=== PATIENT | male | born 1955 | race African-American/Black ===

== ENCOUNTER 2019-03-30 10:38 | Inpatient (IN) | payer BC ==
[2019-03-30] MEDS ORDERED: Aspirin 81 mg CHEW TAB* 81 MG TAB.CHEW PO ONE (11:02)
--- NOTE | 2019-03-30 11:07 | ED ---
HPI Chest Pain - HPI Summary HPI Summary: Pt is a 63 y/o M presenting to the ED with a chief complaint of chest pain rapid onset about 30 minutes ago. He reports SOB since 03/28/19 on exertion. Today, 03/30/19, while he was walking up a small flight of steps, he experienced sudden onset shortness of breath with chest tightness and diaphoresis. He took 1 NTG tablet which gave him some relief. Pt has hx of HTN. He denies hx of DM, smoking, alcohol or drug use. He has had a stress test done 2 years ago and a catheterization last year, which were both clear, but he notes that the doctor saw some spasms during the catheterization. - History of Current Complaint Chief Complaint: EDChestPainROMI Time Seen by Provider: 03/30/19 10:51 Hx Obtained From: Patient Onset/Duration: Started Minutes Ago, Still Present Timing: Constant, Lasting Minutes Initial Severity: Moderate Current Severity: None Pain Intensity: 0 Pain Scale Used: 0-10 Numeric Chest Pain Location: Diffuse Chest Pain Radiates: No Character: Tightness Aggravating Factor(s): Exertion Alleviating Factor(s): NTG 123 - 1 Associated Signs and Symptoms: Positive: Chest Pain, Shortness of Breath, Diaphoresis - Allergy/Home Medications Allergies/Adverse Reactions: Allergies Allergy/AdvReac Type Severity Reaction Status Date / Time latex Allergy Swelling Verified 03/30/19 11:47 Penicillins Allergy Rash Verified 03/30/19 11:47 Sulfa (Sulfonamide Allergy Anaphylatic Verified 03/30/19 11:47 Antibiotics) Shock Home Medications: Home Medications Aspirin EC TAB* [Ecotrin EC Low Dose 81 MG*] 81 mg PO DAILY 03/30/19 [History Confirmed 03/30/19] Bisoprolol TAB* [Zebeta TAB*] 5 mg PO DAILY 03/30/19 [History Confirmed 03/30/19 ] Irbesartan (NF) [Avapro (NF)] 150 mg PO DAILY 03/30/19 [History Confirmed ] Latanoprost 0.005%* [Xalatan 0.005%*] 1 drop OPHTHALMIC QPM 03/30/19 [History Confirmed 03/30/19] Multivitamins/Minerals TAB* [Theragran/minerals TAB*] 1 tab PO DAILY 03/30/19 [ History Confirmed 03/30/19] Nitroglycerin TAB 0.4 MG* 0.4 mg SL Q5M PRN 03/30/19 [History Confirmed 03/30/19 ] amLODIPine TAB* [Norvasc 5 mg TAB*] 2.5 mg PO DAILY 03/30/19 [History Confirmed 03/30/19] PMH/Surg Hx/FS Hx/Imm Hx Previously Healthy: No Endocrine/Hematology History: Denies: Hx Diabetes, Hx Systemic Lupus Erythematosus Cardiovascular History: Reports: Hx Hypertension Denies: Hx Congestive Heart Failure History: Denies: Hx Dialysis, Hx Renal Disease Musculoskeletal History: Denies: Hx Rheumatoid Arthritis - Cancer History Cancer Type, Location and Year: diagnosed prostate ca 08/28/12 Hx Chemotherapy: No - Surgical History Surgery Procedure, Year, and Place: Prostatectomy Infectious Disease History: No Infectious Disease History: Denies: Traveled Outside the [place] in Last 30 Days - Family History Known Family History: Positive: Cardiac Disease - mother of DC at 70y/o - Social History Alcohol Use: None Hx Substance Use: No Substance Use Type: Reports: None Hx Tobacco Use: No Smoking Status (MU): Never Smoked Tobacco Review of Systems Positive: Skin Diaphoresis Positive: Chest Pain Positive: Shortness Of Breath All Other Systems Reviewed And Are Negative: Yes Physical Exam - Summary Physical Exam Summary: Appearance: Well appearing, no pain distress Skin: warm, dry, reflects adequate perfusion Head/face: normal Eyes: EOMI, GALO ENT: normal Neck: supple, non-tender Respiratory: CTA, breath sounds present Cardiovascular: RRR, pulses symmetrical Abdomen: non-tender, soft Musculoskeletal: normal, strength/ROM intact Neuro: normal, sensory motor intact, A&Ox3 Triage Information Reviewed: Yes Vital Signs On Initial Exam: Initial Vitals Temp Pulse Resp BP Pulse Ox 96.9 F 62 18 135/78 96 03/30/19 10:47 03/30/19 10:47 03/30/19 10:47 03/30/19 10:47 03/30/19 10:47 Vital Signs Reviewed: Yes Diagnostics - Vital Signs Vital Signs Temp Pulse Resp BP Pulse Ox 03/30/19 10:47 96.9 F 62 18 135/78 96 - Laboratory Result Diagrams: 03/30/19 11:31 03/30/19 11:31 Lab Statement: Any lab studies that have been ordered have been reviewed, and results considered in the medical decision making process. - Radiology CXR Radiology Interpretation Completed By: Radiologist Summary of Radiographic Findings: No active cardiopulmonary disease is noted. ED physician has reviewed this report. - EKG 1041 Cardiac Rate: Bradycardia - 59bpm EKG Rhythm: Sinus Bradycardia ST Segment: Normal Ectopy: None Summary of EKG Findings: EKG at 1041 shows sinus bradycardia at 59bpm with a prolonged IN interval, L atrial enlargement, and nonspecific T abnormalities, with no STEMI. Chest Pain Course/Dx - Course Course Of Treatment: Pt is a 63 y/o M presenting to the ED with a chief complaint of chest pain rapid onset about 30 minutes ago. He reports SOB since on exertion. Today, 03/30/19, he experienced sudden onset shortness of breath with chest tightness and diaphoresis. He took 1 NTG tablet which gave him some relief. EKG at 1041 shows sinus bradycardia at 59bpm with a prolonged IN interval, L atrial enlargement, and nonspecific T abnormalities, with no STEMI. CXR shows no active cardiopulmonary disease noted. I spoke with Dr. Palomino who will be accepting the pt to [facility] with dx including chest pain r/o DC and Prinzmetal angina. - Chest Pain Differential Diagnosis/HQI/PQRI: Acute DC, ACS, Angina, CHF, Chest Wall, Lower Respiratory Infection - Diagnoses Provider Diagnoses: Chest pain, rule out acute myocardial infarction, Prinzmetal angina Discharge - Sign-Out/Discharge Documenting (check all that apply): Patient Departure - Discharge Plan Condition: Stable Disposition: ADMITTED TO [facility] Referrals: Violetta Mcguire MD [Primary Care Provider] - - Billing Disposition and Condition Condition: STABLE Disposition: Admitted to [facility] - Attestation Statements Document Initiated by Skyeibe: Yes Documenting Scribe: Mary Ashley Provider For Whom Adina is Documenting (Include Credential): Rober Brody MD. Scribe Attestation: Mary Hernandez scribed for Rober Brody MD. on 03/30/19 at 1314. Scribe Documentation Reviewed: Yes Provider Attestation: The documentation as recorded by the skyeibeMary accurately reflects the service I personally performed and the decisions made by Rober meza MD. Status of Scribe Document: Viewed Consult Consult: 1229 - I spoke with Dr. Palomino about the pt's condition who will be accepting the pt to [facility] with dx including chest pain rule out DC and Prinzmetal angina.
[2019-03-30 11:40] LABS: ABS Basophils 0.1 10^3/ul (0-0.2); ABS Eosinophils 0.2 10^3/ul (0-0.6); ABS Lymphocytes 1.7 10^3/ul (1.0-4.8); ABS Monocytes 0.6 10^3/ul (0-0.8); ABS Neutrophils 5.4 10^3/ul (1.5-7.7); Eosinophil % 2.3 %; Hematocrit 43 % (42-52); Hemoglobin 14.3 g/dL (14.0-18.0); Lymphocyte % 20.9 %; Mean Corpuscular HGB Conc 34 g/dL (31-36); Mean Corpuscular Hemoglobin 27 pg (27-31); Mean Corpuscular Volume 81 fL (80-94); Mean Platelet Volume 8.3 fL (7.4-10.4); Nucleated Red Blood Cells % 0.2; Platelet Count 269 10^3/uL (150-450); Red Blood Count 5.24 10^6 /uL (4.18-5.48); Red Cell Distribution Width 14 % (10.5-15); White Blood Count 7.9 10^3/uL (3.5-10.8)
[2019-03-30 11:54] LABS: Activated Partial Thrombo Time 31.4 seconds (26.0-36.3); INR 0.99 (0.82-1.09)
[2019-03-30 11:58] LABS: Albumin 4.1 g/dL (3.2-5.2); Albumin/Globulin Ratio 1.5 (1-3); BUN/Creatinine Ratio 11.7 (8-20); Calcium 9.2 mg/dL (8.6-10.3); EGFR African American 97.5 (>60); EGFR Non-African American 80.5 (>60); Globulin 2.8 g/dL (2-4); Total Bilirubin 0.4 mg/dL (0.2-1.0); Total Protein 6.9 g/dL (6.4-8.9)
[2019-03-30 11:59] LABS: Troponin I 0.01 ng/mL (<0.04)
[2019-03-30] MEDS ORDERED: Nitroglycerin TAB 0.4 MG* 0.4 MG TAB SL PRN (15:17)
[2019-03-30 15:22] LABS: Magnesium 2.1 mg/dL (1.9-2.7)
[2019-03-30 15:41] LABS: TSH (Thyroid Stimulating Horm) 0.69 mcIU/mL (0.34-5.60)
[2019-03-30] MEDS: Enoxaparin(*) 40 MG/0.4 ML SYR SUBCUT SCH (16:37)
[2019-03-30] MEDS ORDERED: Latanoprost 0.005%* 2.5 ml BTL BOTH EYES SCH (18:00)
--- NOTE | 2019-03-30 19:56 | HP ---
History of Present Illness - History of Present Illness Reason for Visit: chest pain History of Present Illness: Patient is 63 year old man with history of hypertension, who has developed dyspnea with exertion and chest tightness over the past 2 days. He first noted dyspnea and chest tightness when climbing a hill 2 days ago. Yesterday he again experienced this walking on the level in a store. Today this occurred again at work, and was accompanied by diaphoresis, lightheadedness. He rated chest heaviness today at 5/10. He went home from work and took nitroglycerin and the pressure resolved. Patient had cardiac cath in May 2018, at [facility]. This showed no obstructive CAD, but did show an area of vasospasm that resolved with intraluminal nitroglycerin. 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 Alcohol: Occassional - social Drugs: None Lives: Friends - , 2 children Review of Systems - Measurements Intake and Output: Intake and Output Last 24 Hours 03/28/19 03/29/19 03/30/19 03/31/19 06:59 06:59 06:59 06:59 Intake Total 360 Balance 360 Weight 126.099 kg Intake: Oral 360 - Review of Systems Constitutional Symptoms: Negative: Weight Gain Dermatology: Positive: Normal HEENT: Positive: Normal Eyes: Positive: Normal Thyroid: Positive: Normal Pulmonary: Positive: Normal Cardiology: Positive: Chest Pain, Shortness of Breath Negative: Palpitations, Orthopnoea Gastroenterology: Positive: Normal Genital - Urinary: Positive: Normal Musculoskeletal: Negative: Joint Pain Endocrinology: Positive: Normal Hematologic/Lymphatic: Negative: Anemia Neurology: Positive: Normal Psychiatry: Positive: Normal Objective Active Medications: Ambulatory Orders LevoCETirizine TAB (NF) [Xyzal TAB (NF)] 5 mg PO DAILY 09/03/14 Aspirin EC TAB* [Ecotrin EC Low Dose 81 MG*] 81 mg PO DAILY 03/30/19 Bisoprolol TAB* [Zebeta TAB*] 5 mg PO DAILY 03/30/19 Irbesartan (NF) [Avapro (NF)] 150 mg PO DAILY 03/30/19 Latanoprost 0.005%* [Xalatan 0.005%*] 1 drop OPHTHALMIC QPM 03/30/19 Multivitamins/Minerals TAB* [Theragran/minerals TAB*] 1 tab PO DAILY 03/30/19 Nitroglycerin TAB 0.4 MG* 0.4 mg SL Q5M PRN 03/30/19 amLODIPine TAB* [Norvasc 5 mg TAB*] 2.5 mg PO DAILY 03/30/19 Vital Signs - 8 hr 03/30/19 03/30/19 03/30/19 12:00 12:05 12:35 Temperature Pulse Rate 52 50 50 Respiratory 17 21 18 Rate Blood Pressure 130/67 115/66 (mmHg) O2 Sat by Pulse 94 94 97 Oximetry 03/30/19 03/30/19 19:14 19:31 Temperature 36.3 C Pulse Rate 55 Respiratory 24 18 Rate Blood Pressure 130/70 (mmHg) O2 Sat by Pulse 99 Oximetry Oxygen Devices in Use Now: None Appearance: alert, no distress Eyes: No Scleral Icterus Ears/Nose/Mouth/Throat: NL Teeth, Lips, Gums, Clear Oropharnyx, Mucous Membranes Moist Neck: NL Appearance and Movements; NL JVP, Trachea Midline Respiratory: Symmetrical Chest Expansion and Respiratory Effort, Clear to Auscultation Cardiovascular: NL Sounds; No Murmurs; No JVD, RRR Abdominal: NL Sounds; No Tenderness; No Distention, No Hepatosplenomegaly Lymphatic: No Cervical Adenopathy, No Axillary Adenopathy Extremities: No Edema Skin: No Rash or Ulcers Neurological: Alert and Oriented x 3, NL Muscle Strength and Tone Lines/Tubes/Other Access: Clean, Dry and Intact Peripheral IV Nutrition: Taking PO's Result Diagrams: 03/30/19 11:31 03/30/19 11:31 Additional Lab and Data: Laboratory Tests 03/30/19 03/30/19 03/30/19 11:31 11:31 11:31 INR (Anticoag Therapy) 0.99 APTT 31.4 Glucose 110 H Calcium 9.2 Troponin I 0.01 B-Natriuretic Peptide 66 TSH 0.69 03/30/19 03/30/19 13:41 18:25 INR (Anticoag Therapy) APTT Glucose Calcium Troponin I 0.03 0.03 B-Natriuretic Peptide TSH Diagnostic Imaging: CXR: negative EKG Data: Normal sinus rhythm, normal axis, T-wave inversions III, aVF, flattened T-waves V5-V6, no old EKG to compare Assess/Plan/Problems-Billing Assessment: 63 year old man with exertional chest discomfort, dyspnea, possible angina - Patient Problems (1) Angina pectoris Current Visit: Yes Status: Acute Priority: High Code(s): I20.9 - ANGINA PECTORIS, UNSPECIFIED SNOMED Code(s): 766810515 Comment: -Patient admitted to telemetry for clear story of exertional angina. -Confounding variable is negative cath less than 1 year ago. -Already on norvasc as anti-anginal -Will plan exercise stress test tomorrow, and consult with cardiology if positive -Holding CCB and BB for testing (2) Congestive heart failure (CHF) Current Visit: Yes Status: Acute Priority: Medium Code(s): I50.9 - HEART FAILURE, UNSPECIFIED SNOMED Code(s): 80218378 Comment: -Differential also includes CHF. Will have echocardiogram in AM. -Discussed with patient (3) DVT prophylaxis Current Visit: Yes Status: Acute Priority: Low Code(s): Z29.9 - ENCOUNTER FOR PROPHYLACTIC MEASURES, UNSPECIFIED SNOMED Code(s): 685664065 Comment: Moderate risk, starting SC Lovenox Status and Disposition: observation
[2019-03-30] MEDS: Latanoprost 0.005%* 2.5 ml BTL BOTH EYES SCH (21:37)
[2019-03-31 07:23] LABS: HDL Cholesterol 33.5 mg/dL
[2019-03-31] MEDS: Losartan TAB* 25 MG PO SCH (08:58)
[2019-03-31] MEDS: Aspirin EC TAB* 81 MG TAB.EC PO SCH (08:59)
[2019-03-31] MEDS: amLODIPine TAB* 5 MG PO SCH (08:59)
[2019-03-31] MEDS ORDERED: Aspirin EC TAB* 81 MG TAB.EC PO SCH (09:00)
[2019-03-31] MEDS ORDERED: Regadenoson* 0.4 MG/5 ML SYRINGE ONE (11:23)
[2019-03-31] MEDS ORDERED: Aminophylline IV* 25 MG/ML 10 ML VIAL ONE (11:25)
[2019-03-31] MEDS: Enoxaparin(*) 40 MG/0.4 ML SYR SUBCUT SCH (15:43)
--- NOTE | 2019-03-31 16:50 | ECHO ---
*[facility]* [place] [address] Fax #: [phone] Transthoracic Echocardiogram Patient: Augustine, Height: 68 in / Nba 172.7 cm : 1955 Weight: 274.4 lb / Study Date: 03/31/2019 124.7 kg Age: 63 BP: 129 / 66 Gender: M BMI/BSA: 41.8 kg/m^2 HR: 57 bpm / 2.34 m^2 *Suede Cleaner: * Kiara Pena [facility] *Referring Physician: * Ghulam Palomino *Reading Physician: * Nandini Hope MD Indications: Congestive Heart Failure. History: Risk factors: Hypertension. Conclusions Summary: 1. Left ventricle: There is mild concentric hypertrophy. Systolic function is normal. The estimated ejection fraction is 55-60%. Left ventricular diastolic function parameters are indeterminate. 2. Right ventricle: The cavity size is mildly dilated. Systolic function is normal. 3. All valves show good function. 4. No prior echocardiogram to compare. Study data: Transthoracic echocardiogram. Procedure: Transthoracic echocardiography was performed. Image quality was fair. Complete 2D, spectral Doppler, and color flow Doppler. Location: Echo laboratory. Patient status: Inpatient. Patient room number: 448-2. Rhythm: Bradycardia. Findings Left ventricle: The cavity size is normal. There is mild concentric hypertrophy. Systolic function is normal. The estimated ejection fraction is 55-60%. Wall motion is normal; there are no regional wall motion abnormalities. Left ventricular diastolic function parameters are indeterminate. Right ventricle: The cavity size is mildly dilated. The moderator band is in a normal position. Systolic function is normal. Left atrium: The atrium is mildly dilated. Right atrium: The atrium is mildly dilated. Mitral valve: The leaflets are mildly thickened. There is no evidence of stenosis. There is trace regurgitation. Aortic valve: The valve is trileaflet. The leaflets are normal thickness. There is no evidence of stenosis. There is no significant regurgitation. Tricuspid valve: The leaflets are normal thickness. There is no evidence of stenosis. There is physiologic regurgitation. Pulmonic valve: The leaflets are normal thickness. There is no evidence of stenosis. There is trace regurgitation. Aorta: Aortic root: The aortic root is appears normal. Ascending aorta: The ascending aorta is upper normal in size. Aortic arch: The aortic arch is appears normal. Pericardium: A prominent pericardial fat pad is present. There is no pericardial effusion. Pulmonary arteries: Not well visualized. Systemic veins: Inferior vena cava: The vessel is normal in size. The respirophasic diameter changes are in the normal range (>= 50%). Measurements Left ventricle Value Ref Right atrium continued Value Ref PORTIA, LAX 5.1 cm 4.2 - 5.8 SI dim/bsa, ES, 2.4 cm/m^2 1.8 - ESD, LAX 3.7 cm 2.5 - 4.0 A4C 3.0 FS, LAX 28 % Estimated RAP 3 mm Hg -------- PW, ED, LAX (H) 1.1 cm 0.6 - 1.0 FS % Aortic valve Value Ref PW, ED (H) 1.1 cm 0.6 - 1.0 Bharti diam, ED 2.0 cm -------- E', lat bharti, TDI (L) 9.5 cm/sec >=10.0 Peak v, S 1.2 m/sec - ------- E/e', lat bharti, 10 VTI, S 19.7 cm ---- ---- TDI Mean grad, S 2.0 mm Hg -------- E', med bharti, TDI (L) 6.4 cm/sec >=7.0 Peak grad, S 6.0 mm Hg - ------- E/e', med bharti, 14 LVOT/AV, VTI ratio 1.17 ---- ---- TDI E', avg, TDI 8.0 cm/sec Mitral valve Value Ref E/e', avg, TDI 11 <=14 Peak E 0.91 m/sec - ------- Peak A 0.72 m/sec -------- LVOT Value Ref Decel time 215 ms -------- Peak bob, S 1 m/sec Peak grad, D 3.3 mm Hg -------- VTI, S 23.0 cm Peak E/A ratio 1.3 -------- Mean grad, S 2 mm Hg Pulmonic valve Value Ref Ventricular septum Value Ref Peak v, S 0.87 m/sec -------- IVS, ED 1.0 cm 0.6 - 1.0 Peak grad, S 3.0 mm Hg -------- Right ventricle Value Ref Aortic root Value Ref PORTIA, LAX 4.0 cm Root diam 3.1 cm <4.4 PORTIA minor ax, (H) 5.0 cm 1.9 - 3.5 A4C mid Ascending aorta Value Ref AAo AP diam, S 3.6 cm -------- Left atrium Value Ref AP dim, ES 4.00 cm 3.00 - Aortic arch Value Ref 4.00 Arch diam 2.6 cm -------- ML dim, A4C 4.9 cm SI dim, A4C 5.4 cm Decending aorta Value Ref Vol/bsa, ES, 1-p 26 ml/m^2 12 - 37 Renae peak bob 1.09 m/sec -------- A4C Vol/bsa, ES, A/L 31 ml/m^2 16 - 34 Inferior vena cava Value Ref Diam 1.8 cm -------- Right atrium Value Ref SI dim, ES (H) 5.6 cm 3.4 - 5.3 ML dim, ES, A4C (H) 4.8 cm 2.6 - 4.4 SI dim, ES, A4C (H) 5.6 cm 3.4 - 5.3 Legend: (L) and (H) nini values outside specified reference range. Prepared and electronically signed by Nandini Hope MD 03/31/2019 16:50
[2019-03-31] MEDS: Latanoprost 0.005%* 2.5 ml BTL BOTH EYES SCH (22:24)
--- NOTE | 2019-03-31 22:47 | CONS ---
CC: Dr. Violetta Mcguire; Dr. Kelly CONSULTATION REPORT: DATE OF CONSULT: 03/31/19 REASON FOR CONSULT: Chest pain and abnormal stress test. CHIEF COMPLAINT: Exertional chest pain, shortness of breath, and diaphoresis. HISTORY OF PRESENT ILLNESS: Mr. Bradshaw is a 63-year-old gentleman who had a heart catheterization last year at [facility] in [place] and was found to have mild disease in the LAD with spasm and was placed on medical management. He did well for the last year. He says the new medication that was added was bisoprolol. He has done well over the last 10 months overall. He has been active. He rides his bike, plays squash. He has an active job at [employer] and he did well until 6 days ago. Six days ago, he played squash; he thinks he might have done some painting or something to the nelson because something white came off on his squash ball and he developed discomfort in the chest while playing squash. This was a . He then did well until graduation at [employer] over the weekend and he was walking up a hill and had chest discomfort and some diaphoresis, but then did fine going downhill. He was then at [facility], walking into [facility] on the flat, and developed chest discomfort and heaviness associated with diaphoresis and shortness of breath and some nausea. Today, on the stress test, he was not able to walk far and had mild ST depression with walking and the stress test, required chemical stress in recovery and the test revealed a reversible area of ischemia in the distribution of the anterior wall and apex. PAST MEDICAL HISTORY: The patient has a past medical history of: 1. Coronary artery disease. 2. Hypertension. 3. Dyslipidemia. 4. Intolerant to statins. 5. Glaucoma. 6. Prostate cancer, status post prostatectomy (2012). 7. Obesity. 8. Positive for obstructive sleep apnea, wears CPAP. MEDICATIONS: Current outpatient medications include: 1. Bisoprolol 5 mg a day. 2. Irbesartan 150 mg a day. 3. Amlodipine 2.5 mg a day. 4. MultiVites. 5. Aspirin 81 mg a day. 6. Levocetirizine (Xyzal) 5 mg a day. 7. Nitroglycerin p.r.n. 8. Xalatan ophthalmic drops. Inpatient medications include: 1. Amlodipine 2.5 mg a day. 2. Lovenox. 3. Aspirin 81 mg a day. 4. Losartan 50 mg a day. 5. Nitroglycerin p.r.n. ALLERGIES: LATEX, PENICILLIN, SULFA, and intolerance to STATINS with myalgias. FAMILY HISTORY: Significant in that his mother had coronary artery disease, history of stents, and congestive heart failure. Father's family history is not known. 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 Distant smoking history. Rare to occasional alcohol use. No history of recreational drug use. with supportive , who is present during the exam. REVIEW OF SYSTEMS: See history of present illness for recent exertional chest pressure, heaviness over the last 6 days. Negative for orthopnea. Negative for any new medication. Negative for fevers, chills, sweats. No change in bowel or bladder habits. He states he has been using a CPAP. He has had a prostatectomy, so no trouble urinating. All other 11-point review of systems were negative. PHYSICAL EXAM: The patient is 5 feet 8 inches, weighs 278 pounds with a BMI of 42. Vital Signs: On admission 03/30/19, blood pressure 135/78, pulse was 62. Current vital signs, blood pressure 127/77, pulse is 55, respiratory rate is 28 , oxygen saturation 99% on room air, and he is afebrile. General Appearance: Older middle- aged gentleman, but very overweight, lying at 20 degrees, comfortable, at his side. Psychologically, pleasant and cooperative. Neurologically, awake, alert, and oriented to person; place; and time. Cranial nerves II through XII intact. Grossly normal sensory and motor function in the upper and lower extremities and bed exam. Skin: Warm, dry. No appreciable cyanosis with lips or nail beds. HEENT: Mucous membranes moist. Neck thick from obesity, but no appreciable thyromegaly. Good carotid pulses. No audible bruits. Breath sounds are clear with good effort. No wheezes, rales, or rhonchi. Coronary: S1, S2, regular without murmurs or rubs. Abdomen: Overweight, active bowel sounds, soft. Nontender. No appreciable hepatomegaly. Lower extremities are free of edema and warmth. Wrists are symmetrical with pulses 2+. DIAGNOSTIC STUDIES/LAB DATA: Labs: White count 7.9, hematocrit 43, platelets 269. INR 0.99, PTT 31. Sodium 139, potassium 4.0, chloride 108, bicarb 25, BUN 11, creatinine 0.94, glucose 110. AST 24, ALT 31. Troponin #1 of 0.01. Troponin #2 of 0.03. Troponin #3 of 0.03. Total cholesterol 179, triglycerides 128, LDL cholesterol 120, HDL cholesterol 35. TSH 0.69. EKG on admission at 10:41 showed normal sinus rhythm at 60 beats per minute, QRS axis of 0 with normal AV and IV conduction times. Some flattened T waves in the lateral leads. Nuclear stress test was reviewed personally and shows reversible ischemia in the distribution of the LAD, the anterior wall and apex. Ejection fraction was 60% at stress. EKG portion of the stress test showed some mild ST depression and showed he was able to walk into stage II with a standard Willie protocol, achieved a workload of 4.6 METs and therefore, followed with a Lexiscan ( chemical stress test). The precordial leads did show inverted T waves V3 through V6 which replaced flattened T waves. Cardiac catheterization performed at [facility] in May 2018 showed : Left main: Large, free of disease. LAD: Large caliber with mild stenosis proximally, improved with nitroglycerin, consistent with spasm. Circumflex: Free of disease. Right coronary artery: Mild luminal irregularities. Left ventricular end diastolic pressure was 12. Echocardiogram done today showed an ejection fraction of 55% to 60%, mild right ventricular dilatation, normal valve function. IMPRESSION AND PLAN: In summary, Mr. Arango is a 63-year-old gentleman with a good story for crescendo angina, abnormal stress test by EKG and nuclear imaging in that it illustrated his poor functional ability, which is new ( recently playing squash, biking 25 miles). I am wondering if the LAD lesion progressed from mild to moderate and he perhaps cracked his moderate plaque and there is now clot on top of this which could present like this. I recommended repeat catheterization even in the setting of the unremarkable catheterization 10 months ago. Risks and benefits of the procedure were discussed with the patient in the presence of his . They asked many good questions and he asked about if it would be okay to proceed with medical management and I explained that based on his stress test performance, it would be hard to get him back to work feeling well or back to exercising feeling well and that our data would support proceeding with another heart catheterization to help us determine what the best management of his symptoms are. He is amenable to proceeding, but very much wants this study to be done through his wrist. Additional recommendations will be made pending the results of his stress test. I did discuss with the patient and his the fact that, although his cholesterol panel is overall good, if it did show progression in his atherosclerotic disease, we would need to work on medications other than statins to try to optimize his cholesterol, especially in light of his family history. I also discussed his weight as another risk factor. [id number]/[facility] #: [id number] ISHMAEL
[2019-04-01] MEDS ORDERED: NS 0.9% 1000 ML** 400 ML IV SCH (06:00)
[2019-04-01] MEDS: Aspirin EC TAB* 81 MG TAB.EC PO SCH (08:02)
[2019-04-01] MEDS: Losartan TAB* 25 MG PO SCH (08:02)
[2019-04-01] MEDS: amLODIPine TAB* 5 MG PO SCH (08:03)
--- NOTE | 2019-04-01 08:40 | PN ---
Cardiology Progress Note Date of Service: 04/01/19 - abnormal stress test, c/o chest pain. Met with patient and his who was at beside to review indication for LHC including risk versus benefits of procedure. He is aware that he had an abnormal stress test 03/31/2019 that demonstrated reversible ischemia in the apex , apical to mid anterior wall. He has known mild to moderate LAD lesion based on last LHC. He denies h/o CVA, bleeding complications in the past( GI bleed, need to be transfused). I reviewed the possibility of needing PTCA, cardiac stent or possible CABG and the role of DAPT. He is aware that if he were to need CABG this would have to be done at a tertiary cardiac center. [facility] is okay with [facility] if that needs to be done. I discussed the risk of the procedure that include but are not limited to bleeding, infection, risk of vessle damage, CVA, ID, , contrast induced nephropathy. He is agreeable to proceeding with cardiac catheterization. Consent to be obtained by Dr. Sam [facility] [employer].
[2019-04-01] MEDS ORDERED: fentaNYL* 50 MCG/ML 2 ML VIAL (100 MCG VIAL) ONE (08:49)
[2019-04-01] MEDS ORDERED: Midazolam* 1 MG/ML 5 ML VIAL (5 MG) ONE (08:49)
[2019-04-01] MEDS ORDERED: Iohexol 350 (CONTRAST) 200 ML MDV IV ONE (08:50)
[2019-04-01] MEDS ORDERED: nitroGLYCERIN DRIP* 25,000 MCG/250 ML BTL ONE ×2 (08:50→09:53)
[2019-04-01] MEDS ORDERED: Lidocaine 1% INJ* 10 MG/ML 30 ML SDV ONE (08:50)
[2019-04-01] MEDS ORDERED: Heparin(*) 1000 UNIT/ML 10 ML VIAL CATH LAB IV ONE ×2 (08:50→09:40)
[2019-04-01] MEDS ORDERED: VERAPAMIL 2.5 MG/ML 2 ML VIAL ** 5 mg/2 ml ONE (08:50)
[2019-04-01] MEDS ORDERED: Heparin 2 UNITS/ML IVPREMIX* 2,000 UNIT/1,000 ML BAG IV ONE (08:51)
[2019-04-01] MEDS ORDERED: Ticagrelor* 90 MG TAB PO ONE (09:35)
[2019-04-01] MEDS ORDERED: NS 0.9% 1000 ML** 1,000 ML IV SCH (10:15)
--- NOTE | 2019-04-01 14:59 | CATH ---
CC: Dr. Violetta Mcguire; Dr. Hope STENT REPORT: DATE OF PROCEDURE: 04/01/19 PRIMARY CARE PHYSICIAN: Dr. Violetta Mcguire. BISQUE GRADER: Dr. Hope. PROCEDURES: 1. Right radial artery access. 2. Bilateral selective coronary cineangiography. 3. Left heart catheterization. 4. Stent placement to LAD 4.0 x 16 mm Synergy drug-eluting stent. HISTORY: A 63-year-old male with cath in [place] 1 year ago, which demonstrated proximal LAD stenosis, which was mild, responded to nitroglycerin per report. The area of the current lesion at that time on an image that his has on her phone had only a 10% to 20% stenosis. He now presents with unstable angina with progressive symptoms, progressive limitations, had a modera te risk stress imaging study yesterday with limited exercise capacity, reproduction of angina, and an anteroapical reversible defect. PROCEDURE ACCESS: Right radial artery sheath, 6F slender. MEDICATIONS: 1. Subcu lidocaine. 2. IV Versed. 3. IV fentanyl. 4. Heparin 3000 units. 5. Verapamil 3 mg. 6. Nitroglycerin 300 mcg IA. 7. Brilinta 180 mg p.o. loading dose. 8. Heparin 7000 units IV. DIAGNOSTIC CATHETER: 5F TIG4, 5FR4, which was also used to measure LV pressure and pullback. HEMODYNAMICS: AO 108/69. LV 103/21, no aortic valve gradient on pullback. ANGIOGRAPHY: Left main: The left main is short, normal. LAD: The LAD is very large, extends past the apex. There is a 90% stenosis just proximal to the sec ond relatively small diagonal, distal LAD has minor luminal irregularity, supplies the inferoapical a pex. The area of concern in [place] again has minimal stenosis. Circumflex: The circumflex is large, not dominant with a large ramus branch or a high OM. He has mo derate bifurcated second marginal, circumflex and with several small posterolaterals. The circumflex has no significant stenosis. RCA: The RCA is large, dominant, with minor luminal irregularities, supplies a large PDA and the sma ll posterolateral, has no significant stenosis. After drug-eluting stent placement and high pressure postdilatation, the small second diagonal which is jailed is occluded, there is no residual stenosis, flow is THIAGO-3. He had very transient chest di scomfort that resolved with IV nitro. CONCLUSION: 1. Singe-vessel disease LAD with progression from prior study per report. The area of previously navarro spected proximal spasm is unchanged. 2. Excellent angiographic result with drug-eluting stent placement. 3. Normal left-sided hemodynamics aside from elevated LVEDP. 4. Successful right radial artery access. [id number]/[facility] #: [id number]
[2019-04-01] MEDS: Enoxaparin(*) 40 MG/0.4 ML SYR SUBCUT SCH (16:26)
[2019-04-01] MEDS: Latanoprost 0.005%* 2.5 ml BTL BOTH EYES SCH (21:38)
[2019-04-01] MEDS: Ticagrelor* 90 MG TAB PO SCH (21:39)
[2019-04-02 05:57] LABS: Blood Urea Nitrogen 12 mg/dL (6-24); CO2 Carbon Dioxide 23 mmol/L (22-32); Calcium 9.1 mg/dL (8.6-10.3); Chloride 107 mmol/L (101-111); EGFR African American 90.7 (>60); Glucose 104 mg/dL (70-100); Sodium 138 mmol/L (135-145)
[2019-04-02 06:03] LABS: Anion Gap 8 mmol/L (2-11)
[2019-04-02] MEDS: amLODIPine TAB* 5 MG PO SCH (08:04)
[2019-04-02] MEDS: Aspirin EC TAB* 81 MG TAB.EC PO SCH (08:05)
[2019-04-02] MEDS: Ticagrelor* 90 MG TAB PO SCH (08:05)
[2019-04-02] MEDS: Losartan TAB* 25 MG PO SCH (08:05)
--- NOTE | 2019-04-02 08:45 | PN ---
<Polina Aguilar - Last Filed: 04/02/19 08:39> Subjective Date of Service: 04/02/19 - abnormal stress test s/p HONG/Proximal LAD Interval History: No events last night, patient offers no complaints. Denies chest pain, sob, rosa , palpitations, dizziness. He has been up and ambulating with no problems. He is anxious to go home. He is asking about whether or not he will go home on his previous bblocker given BP has been elevated. Medications Active Medications: Amlodipine Besylate (Norvasc Tab*) 2.5 mg PO DAILY [facility] Last Admin: 04/02/19 08:04 Dose: 2.5 mg Aspirin (Aspirin Ec Tab*) 81 mg PO DAILY [facility] Last Admin: 04/02/19 08:05 Dose: 81 mg Bisoprolol Fumarate (Zebeta Tab*) 5 mg PO DAILY [facility] Enoxaparin Sodium (Lovenox(*)) 40 mg SUBCUT Q24H [facility] Last Admin: 04/01/19 16:26 Dose: 40 mg Latanoprost (Xalatan 0.005%*) 1 drop BOTH EYES BEDTIME [facility] Last Admin: 04/01/19 21:38 Dose: 1 drop Losartan Potassium (Cozaar Tab*) 50 mg PO DAILY [facility] Last Admin: 04/02/19 08:05 Dose: 50 mg Nitroglycerin (Nitroglycerin Tab 0.4 Mg*) 0.4 mg SL Q5M PRN PRN Reason: PAIN - CHEST Pitavastatin (Livalo (Nf)) 1 mg PO 1700 [facility] Ticagrelor (Brilinta*) 90 mg PO BID [facility] Last Admin: 04/02/19 08:05 Dose: 90 mg Objective Vital Signs: Temp Pulse Resp BP Pulse Ox 98.4 F 58 17 136/76 95 04/02/19 07:29 04/02/19 06:00 04/02/19 06:00 04/02/19 06:00 04/02/19 06:00 Oxygen Devices in Use Now: None Appearance: lying in bed, well nourished. NAD, A+O x3 Ears/Nose/Mouth/Throat: NL Teeth, Lips, Gums, Clear Oropharnyx, Mucous Membranes Moist Neck: NL Appearance and Movements; NL JVP Respiratory: Symmetrical Chest Expansion and Respiratory Effort, Clear to Auscultation Cardiovascular: NL Sounds; No Murmurs; No JVD, No Edema, - - right radial access site is intact, no swelling. no hematoma. Extremities: No Edema Neurological: Alert and Oriented x 3, NL Sensation Lines/Tubes/Other Access: Clean, Dry and Intact Peripheral IV Laboratory Results: 03/30/19 11:31 04/02/19 04:36 INR (Anticoag Therapy) 0.99 (0.82-1.09) 03/30/19 11:31 APTT 31.4 seconds (26.0-36.3) 03/30/19 11:31 Total Bilirubin 0.40 mg/dL (0.2-1.0) 03/30/19 11:31 AST 24 U/L (13-39) 03/30/19 11:31 ALT 31 U/L (7-52) 03/30/19 11:31 Alkaline Phosphatase 85 U/L (34-104) 03/30/19 11:31 B-Natriuretic Peptide 66 pg/mL (<=100) 03/30/19 11:31 Total Protein 6.9 g/dL (6.4-8.9) 03/30/19 11:31 Albumin 4.1 g/dL (3.2-5.2) 03/30/19 11:31 Globulin 2.8 g/dL (2-4) 03/30/19 11:31 Albumin/Globulin Ratio 1.5 (1-3) 03/30/19 11:31 Triglycerides 128 mg/dL 03/31/19 06:34 Cholesterol 179 mg/dL 03/31/19 06:34 LDL Cholesterol 120 mg/dL 03/31/19 06:34 HDL Cholesterol 33.5 mg/dL 03/31/19 06:34 TSH 0.69 mcIU/mL (0.34-5.60) 03/30/19 11:31 03/30/19 03/30/19 03/30/19 11:31 13:41 18:25 Troponin I 0.01 0.03 0.03 Diagnostic Imaging: *[facility]* [place] [address] Fax #: [phone] Transthoracic Echocardiogram Patient: uAgustine, Height: 68 in / Nba 172.7 cm : 1955 Weight: 274.4 lb / Study Date: 03/31/2019 124.7 kg Age: 63 BP: 129 / 64 Gender: M BMI/BSA: 41.8 kg/m^2 HR: 57 bpm / 2.34 m^2 *Track Fitter: * Kiara Pena RDCS *Referring Physician: * Ghulam Palomino *Reading Physician: Nandini Vraner MD Indications: Congestive Heart Failure. History: Risk factors: Hypertension. Conclusions Summary: 1. Left ventricle: There is mild concentric hypertrophy. Systolic function is normal. The estimated ejection fraction is 55-60%. Left ventricular diastolic function parameters are indeterminate. 2. Right ventricle: The cavity size is mildly dilated. Systolic function is normal. 3. All valves show good function. 4. No prior echocardiogram to compare. Study data: Transthoracic echocardiogram. Procedure: Transthoracic echocardiography was performed. Image quality was fair. Complete 2D, spectral Doppler, and color flow Doppler. Location: Echo laboratory. Patient status: Inpatient. Patient This report is only to be considered final once signed by the Provider(s) as displayed in the "<Electronically Signed by >" field (s). Absence of a signature indicates the report is in a draft status and still needs to be finalized. In the event this document was created by someone other than the signing Provider, the individual initiating the document will be listed in the "Entered by:" or "Dictated by:" guerra. EKG Data: 04/02/2019; Sinus rhythm rate 62 with diffuse TW flattening. Telemetry; reviewed. Sinus rhythm rate 60's rare PVC no VT Assessment/Plan #1 Abnormal stress test with c/o chest pain. He is s/p HONG 4.0x16mm Synergy to Proximal LAD 03/31/2019. Patient is doing well with no recurrent c/o chest pain. He offers no complaints at this time. He is to go home on ASA 81/day, Brilinta 90mg PO BID ( free 30 day supply has been sent to our outpatient pharmacy). Will restart Livalo 1mg/day which he previously tolerated in addition to Co Q 10 100mg/day. Patient was previously on Bisproprolol 5mg/day with known proximal LAD spasm. will go back home on Bisproprolol 5mg/day. He is to f/u with Dr. Paul Keating on 04/06/2019 . I personally spoke with Dr. Schneider who states his office will contact the patient with date and time of f/u appointment and is aware that he will need repeat FLP/LFT in 6-8 weeks given re initiation of Livalo. Please note patient has a h/o of multiple statin intolerances. #2 h/o HTN; BP elevated will resume Bisproprolol 5mg/day. #3 h/o HLD; Goal LDL < 70 given h/o CAD. Will go home on Livalo 1mg/day. Will need FLP/LFT in 6-8 weeks. Primary immigration manager is aware. #4 Disposition pending course. Patient full code. Will sign off. Please do not hesitate to contact our practice with any questions or concerns. D/w Dr. Keating. Attending: Paul Keating <Paul Keating - Last Filed: 04/02/19 09:24> Medications Active Medications: Amlodipine Besylate (Norvasc Tab*) 2.5 mg PO DAILY [facility] Last Admin: 04/02/19 08:04 Dose: 2.5 mg Aspirin (Aspirin Ec Tab*) 81 mg PO DAILY [facility] Last Admin: 04/02/19 08:05 Dose: 81 mg Bisoprolol Fumarate (Zebeta Tab*) 5 mg PO DAILY [facility] Enoxaparin Sodium (Lovenox(*)) 40 mg SUBCUT Q24H [facility] Last Admin: 04/01/19 16:26 Dose: 40 mg Latanoprost (Xalatan 0.005%*) 1 drop BOTH EYES BEDTIME [facility] Last Admin: 04/01/19 21:38 Dose: 1 drop Losartan Potassium (Cozaar Tab*) 50 mg PO DAILY [facility] Last Admin: 04/02/19 08:05 Dose: 50 mg Nitroglycerin (Nitroglycerin Tab 0.4 Mg*) 0.4 mg SL Q5M PRN PRN Reason: PAIN - CHEST Pitavastatin (Livalo (Nf)) 1 mg PO 1700 [facility] Ticagrelor (Brilinta*) 90 mg PO BID [facility] Last Admin: 04/02/19 08:05 Dose: 90 mg Objective Vital Signs: Temp Pulse Resp BP Pulse Ox 98.4 F 58 17 136/76 95 04/02/19 07:29 04/02/19 06:00 04/02/19 06:00 04/02/19 06:00 04/02/19 06:00 Laboratory Results: 03/30/19 11:31 04/02/19 04:36 INR (Anticoag Therapy) 0.99 (0.82-1.09) 03/30/19 11:31 APTT 31.4 seconds (26.0-36.3) 03/30/19 11:31 Total Bilirubin 0.40 mg/dL (0.2-1.0) 03/30/19 11:31 AST 24 U/L (13-39) 03/30/19 11:31 ALT 31 U/L (7-52) 03/30/19 11:31 Alkaline Phosphatase 85 U/L (34-104) 03/30/19 11:31 B-Natriuretic Peptide 66 pg/mL (<=100) 03/30/19 11:31 Total Protein 6.9 g/dL (6.4-8.9) 03/30/19 11:31 Albumin 4.1 g/dL (3.2-5.2) 03/30/19 11:31 Globulin 2.8 g/dL (2-4) 03/30/19 11:31 Albumin/Globulin Ratio 1.5 (1-3) 03/30/19 11:31 Triglycerides 128 mg/dL 03/31/19 06:34 Cholesterol 179 mg/dL 03/31/19 06:34 LDL Cholesterol 120 mg/dL 03/31/19 06:34 HDL Cholesterol 33.5 mg/dL 03/31/19 06:34 TSH 0.69 mcIU/mL (0.34-5.60) 03/30/19 11:31 03/30/19 03/30/19 03/30/19 11:31 13:41 18:25 Troponin I 0.01 0.03 0.03 Assessment/Plan The patient was seen and examined by me. I again reviewed the importance of dual antiplatelet tx. I answered all his and his 's questions to their satisfaction. I will be seeing him next week for a wound check and then he will follow up with his primary immigration manager, Dr. Nathan Kelly. He was given an education booklet and has his stent card.
[2019-04-02] MEDS ORDERED: Bisoprolol TAB* 5 MG PO SCH (09:00)
[2019-04-02 10:22] VITALS: BP 148/91
[2019-04-02] MEDS ORDERED: Pitavastatin (NF) 1 MG TAB PO SCH (17:00)
--- NOTE | 2019-04-08 08:22 | DS ---
CC: BHAVESH; Naya Elaine. DISCHARGE SUMMARY: DATE OF ADMISSION: 03/30/19 DATE OF DISCHARGE: 04/02/19 DISCHARGE DIAGNOSES: 1. Coronary artery disease with acute coronary syndrome due to left anterior descending stenosis, status post stenting. 2. History of hypertension. 3. Glaucoma. 4. Obesity. 5. History of prostate cancer. 6. Hyperlipidemia with intolerance to statins. 7. Allergic rhinitis. 8. Sleep apnea. HISTORY: Nba Bradshaw is a 63-year-old man admitted with chest pain and shortness of breath. Please see the dictation admission note for details of history of present illness, past medical history, family history, social and personal history, review of systems, and physical examination. LABORATORY DATA: CBC, 03/30/19; WBC 7.9, H and H 14.3/43, MCV 81, PLT 269,000. INR/PTT normal. D-dimer less than 200. Chemistries: Sodium 139, potassium 4.0 , chloride 108, CO2 of 25, BUN and creatinine 11/0.94, glucose 110. Rest of the comprehensive metabolic panel was within normal limits. Lipids: Cholesterol 179, HDL 33.5, LDL 120, triglycerides 128. TSH normal at 0.69. Troponins were 0.01, 0.03, 0.03. IMAGING: Chest x-ray on 03/30/19 showed no acute cardiopulmonary disease. EKG on admission showed sinus rhythm, prolonged AR interval, left atrial enlargement, nonspecific T-wave abnormalities. EKG on 04/01/19 showed borderline prolonged QTc, mild nonspecific T-wave changes , and increase in QTc. EKG on 04/02/19 showed sinus rhythm, prolonged AR interval, borderline abnormal T- wave anterolateral leads. Transthoracic echocardiogram done 03/30/19 showed mild LVH, normal EF, mild right ventricular dilatation. Stress test on 03/31/19 showed poor exercise capacity due to chest pain and shortness of breath, nausea, nondiagnostic EKG. Patient was unable to continue to stage II and converted to a Lexiscan at that point. Nuclear images showed high risk based on nuclear portion showing moderate region of stress induced ischemia involving the apex and apical to mid anterior wall segments with associated mild hypokinesis. Ejection fraction was normal. Cardiac catheterization on 04/01/19 showed stenosis, single vessel LAD with progression from prior study per report. There was a 90% stenosis just proximal to the second relatively small diagonal, distal LAD had minor luminal irregularity. LAD was stented with [employer] SYNERGY 4x16mm drug eluting stent. HOSPITAL COURSE: The patient was admitted. He was placed on telemetry monitoring. He had workup as noted above. He was seen in cardiology consultation. After results of the abnormal stress test were known, it was recommended that he have a cardiac catheterization. This was done as noted above. He felt better after cardiac cath was done with placement of stent. He had no complaints. He denied chest pain, shortness of breath, dyspnea on exertion, palpitations, dizziness. He was ambulating without problems and was anxious to go home on the day following the procedure. He was discharged on dual antiplatelet therapy. He was given education booklet and had a stent card. At the time of discharge, he is to be on the following medications: 1. Amlodipine 2.5 mg daily. 2. Aspirin 81 mg daily. 3. Bisoprolol 5 mg daily. 4. Latanoprost one drop both eyes at bedtime. 5. Losartan 50 mg daily. 6. Nitroglycerin p.r.n. chest pain. 7. Livalo 1 mg p.o. daily. 8. Brilinta 90 mg b.i.d. 9. CoQ 10 200 mg daily. He is to follow up with Cardiology and with Dr. Keating for post cath appointment and then Dr. Kelly as his computer tech. He was willing to try statin again despite his previous negative reactions to it. He said it took about a month and a half when he had symptoms with Livalo before. He will try taking it with CoQ 10 200 mg a day. He was discharged home in improved condition. He is to follow up with his primary care provider, Dr. Violetta Mcguire , myself, in 4 to 7 days. [id number]/[facility] #: [id number] [facility]abine
== END 2019-04-02 11:20 | disposition home or self-care (01) | DRG 175 ==
LOC: ED 10:38 → MEDTELE 14:57 → ICU 04-01 12:41 → OBSVTOIN 04-01 16:16
PROVIDERS: ADMIT Internal Medicine; ATTEND Internal Medicine Geriatric Medicine
PROC: 4A02XM4 Measurement of Cardiac Total Activity, External Approach (ICD-10-PCS; 2019-03-31)
PROC: 4A023N7 Measurement of Cardiac Sampling and Pressure, Left Heart, Percutaneous Approach (ICD-10-PCS; 2019-04-01)
PROC: 027034Z Dilation of Coronary Artery, One Artery with Drug-eluting Intraluminal Device, Percutaneous Approach (ICD-10-PCS; principal; 2019-04-01 09:00)
PROC: B2111ZZ Fluoroscopy of Multiple Coronary Arteries using Low Osmolar Contrast (ICD-10-PCS; 2019-04-01 09:00)
DX: I25.110 Atherosclerotic heart disease of native coronary artery with unstable angina pectoris (principal); Z68.41 Body mass index [BMI] 40.0-44.9, adult; H40.9 Unspecified glaucoma; E66.9 Obesity, unspecified; E78.5 Hyperlipidemia, unspecified; G47.33 Obstructive sleep apnea (adult) (pediatric); Z88.0 Allergy status to penicillin; Z88.2 Allergy status to sulfonamides; Z91.040 Latex allergy status; Z85.46 Personal history of malignant neoplasm of prostate; Z90.79 Acquired absence of other genital organ(s); Z82.49 Family history of ischemic heart disease and other diseases of the circulatory system; Z72.89 Other problems related to lifestyle; Z81.1 Family history of alcohol abuse and dependence; Z88.8 Allergy status to other drugs, medicaments and biological substances; I49.3 Ventricular premature depolarization; I10 Essential (primary) hypertension; Z87.891 Personal history of nicotine dependence
CPT/HCPCS: 36415; 71045; 78452; 80048; 80053; 80061; 83735; 83880; 84443; 84484; 85025; 85347; 85379; 85610; 85730; 93005; 93306; 93458; 99156; 99157; 99284; A9270-GY; A9502; C1725; C1769; C1876; C1887; C9600-LD; G0378; J0280; J1644; J1650; J2250; J2785; J3010